=== PATIENT | female | born 1970 | race African-American/Black ===

== ENCOUNTER 2016-09-19 09:33 | Emergency (ER) | payer MEDICAID ==
--- NOTE | 2016-09-19 11:12 | ER Document Report ---
ED General - General Chief Complaint: Cough Stated Complaint: COUGH Notes: Patient has had a sore throat and a cough for the past week. Painful throat to swallow, but no pocket of the airway or oral passage. She is here with her daughter who has had similar symptoms, but for only one day. This patient's stomach hurts when she coughs. She's not had any nausea or vomiting or diarrhea , however. No UTI symptoms. Not aware of any fever. TRAVEL OUTSIDE OF THE [place] IN LAST 30 DAYS: No - Related Data Allergies/Adverse Reactions: No Known Allergies Allergy (Verified 09/19/16 09:41) Past Medical History - Social History Smoking Status: Never Smoker Chew tobacco use (# tins/day): No Frequency of alcohol use: None Drug Abuse: None Family History: Reviewed & Not Pertinent Patient has suicidal ideation: No Patient has homicidal ideation: No - Past Medical History Cardiac Medical History: Reports: Hx Hypertension Denies: Hx Coronary Artery Disease, Hx Heart Attack Past Surgical History: Reports: None - Immunizations Hx Diphtheria, Pertussis, Tetanus Vaccination: Yes Review of Systems - Review of Systems Notes: REVIEW OF SYSTEMS: CONSTITUTIONAL : Denies fever. EENT: Denies eye, ear, nose or mouth or throat pain or other symptoms. CARDIOVASCULAR: Denies chest pain. RESPIRATORY: Has a primarily dry cough without chest congestion, or shortness of breath. GASTROINTESTINAL: Denies abdominal pain or nausea, vomiting, or diarrhea. GENITOURINARY: Denies difficulty or painful urinating, urinary frequency, blood in urine. MUSCULOSKELETAL: Denies back or neck pain. Denies joint pain or swelling. SKIN: Denies rash or skin lesions. NEUROLOGICAL: Denies LOC or altered mental status. Denies headache. Denies sensory loss or motor deficits. ALL OTHER SYSTEMS REVIEWED AND NEGATIVE. Physical Exam - Vital signs Vitals: Temp Pulse Resp BP Pulse Ox 97.8 F 84 20 131/103 H 94 09/19/16 09:39 09/19/16 09:39 09/19/16 09:39 09/19/16 09:39 09/19/16 09:39 Interpretation: Normal - Notes Notes: PHYSICAL EXAMINATION: GENERAL: Well-appearing, in no acute distress. Vital signs are normal. Voice sounds normal. HEAD: Atraumatic, normocephalic. ENT: oropharynx with erythema and some very minimal soft tissue swelling, especially in the right tonsillar region. Without exudates. Moist mucous membranes. Patent oral passage and airway. NECK: Normal range of motion, supple. No significant submandibular adenopathy. LUNGS: Breath sounds clear and equal bilaterally. No wheezes heard. HEART: Regular rate and rhythm without murmurs. ABDOMEN: Soft, nontender. No guarding or rebound. BACK: No tenderness throughout entire back. EXTREMITIES: Normal range of motion without pain. No swelling and no pain. Negative Homans bilaterally. NEUROLOGICAL: Normal speech, normal gait. Normal sensory, motor, and reflex exams. Awake, alert, and oriented x3. Cranial nerves normal. SKIN: Warm, dry, no rashes. Course - Vital Signs Vital signs: Temp Pulse Resp BP Pulse Ox 98.2 F 82 20 128/90 H 91 L 09/19/16 11:23 09/19/16 11:23 09/19/16 09:39 09/19/16 11:23 09/19/16 11:23 - Diagnostic Test Radiology results interpreted by me: 09/19/16 12:56 Chest x-ray is normal. Discharge - Discharge Clinical Impression: Sore throat Pharyngitis Qualifiers: Pharyngitis/tonsillitis etiology: unspecified etiology Qualified Code(s): J02.9 - Acute pharyngitis, unspecified Condition: Stable Disposition: HOME, SELF-CARE Additional Instructions: UPPER RESPIRATORY ILLNESS: You have a viral infection of the respiratory passages -- a "cold." This common infection causes nasal congestion, drainage, and often sore throat and cough. It is highly contagious. The disease usually lasts about 10 to 14 days. There is no "cure" for the viral infection -- it must run its course. If there is a complication, such as bacterial infection in the nose, sinuses, middle ear, or bronchial tubes, antibiotics may be required. The antibiotics won't affect the virus. Drink plenty of fluids. A humidifier may help. An expectorant medication or decongestant may make you more comfortable. Use acetaminophen or ibuprofen for fever or aches. See the doctor if fever persists over two days, if there is any significant worsening of your symptoms, or if you simply fail to improve as expected. SORE THROAT: Sore throats may be caused by viruses, bacteria, or fungi. Most are due to a virus, and must get better on their own. Bacterial sore throats, particularly those due to "strep," need treatment with antibiotics. If an antibiotic is prescribed, be sure to take the medication for a full 10 days. Failure to take the antibiotic can result in complications such as rheumatic fever. Sometimes, an injection of antibiotics is given instead of pills or liquid. This single "shot" is equal in effectiveness to the oral medication. To relieve symptoms, take acetaminophen for pain. Sip clear liquids frequently, or eat popsicles or ice chips. Anesthetic sprays or lozenges may help. Make sure the air in the room is not too dry. Avoid using decongestants or antihistamines. Call the doctor if there is no improvement in two days, or if you have difficulty breathing, increasing throat pain, high fever, rash, or frequent vomiting. STREP THROAT: Your sore throat may be due to the streptococcus germ (strep throat). Strep throat usually makes you feel quite ill with fever and aches, headache, swollen sore throat, and tender bumps under the angles of the jaw. Strep throat requires antibiotic treatment. Although the sore throat may go away by itself, complications such as rheumatic fever, kidney disease, or throat abscess can occur. We usually prescribe antibiotics by mouth. Be sure to take the medicine until it's gone. If you stop early, the strep may come back. If you are vomiting, are severely ill, or can't remember to take pills, we can give you an antibiotic shot. Take acetaminophen or ibuprofen for pain and fever. Sip frequent clear liquids, or use popsicles or ice chips. Anesthetic sprays or lozenges may help. Make sure the air in the room is not too dry. Avoid using decongestants or antihistamines. Call the doctor if there is no improvement in three days, or if you have difficulty breathing, increasing throat pain, high fever, rash, or frequent vomiting. PENICILLIN V K: You have been given a prescription for Penicillin VK. Your physician has determined that this is the best antibiotic for your condition. Pen VK can be taken with meals, however more of the antibiotic gets into the bloodstream if it's taken on an empty stomach. Penicillin usually has no side effects. However, allergy to penicillins is common. If you have had an allergic reaction to any drug of the penicillin family, you should never take any other penicillin. Notify your doctor at once if you develop hives, itching, swelling, faintness, or shortness of breath. Fluconazole, if you develop yeast infection Fluconazole (Diflucan) is an antifungal drug. It is useful for serious fungal infections, but is also excellent for oral or vaginal yeast infections. Diflucan interacts with some medicines. This is a concern if you are taking anticoagulants (such as Coumadin), phenytoin (Dilantin), cyclosporin, or oral hypoglycemics (such as tolbutamide, Orinase, glipizide, Glucotrol, glyburide, DiaBeta, Glynase, and Micronase). Be sure the doctor knows if you are taking one of these medicines. We don't know how Diflucan affects . If you are planning to become , discuss this with your doctor. Diflucan has few side effects. Minor side effects may include nausea, headache, or diarrhea. Call the doctor if you develop a skin rash, shortness of breath, or other new symptoms. USE OF ACETAMINOPHEN (Tylenol): Acetaminophen may be taken for pain relief or fever control. It's much safer than aspirin, offering a wider range of "safe" dosages. It is safe during . Some brand names are Tylenol, Panadol, Datril, Anacin 3, Tempra, and Liquiprin. Acetaminophen can be repeated every four hours. The following are maximum recommended dosages: WEIGHT Dose Drops Elixir Chewable( 80mg) (LBS.) drprs=droppers tsp=teaspoon >89 pounds or adults 650 mg to 900 mg Acetaminophen can be repeated every four hours. Maximum dose not to exceed 4000 mg a day. These maximum recommended dosages are slightly higher than the dosages written on the product container, but these dosages are very safe and below the toxic dosage for acetaminophen. FOLLOW-UP CARE: If you have been referred to a physician for follow-up care, call the physician s office for an appointment as you were instructed or within the next two days. If you experience worsening or a significant change in your symptoms, notify the physician immediately or return to the Emergency Department at any time for re-evaluation. Prescriptions: Fluconazole [Diflucan] 150 mg PO ONCE PRN #1 tablet PRN Reason: Penicillin V Potassium [Penicillin Vk 500 mg Tablet] 500 mg PO TID #20 tablet Forms: Return to Work Referrals: EMMANUEL PRASAD MD [Primary Care Provider] - Follow up as needed
[2016-09-19 11:25] VITALS: BP 128/90
== END 2016-09-19 11:26 | disposition home or self-care (01) ==
LOC: ER 09:33
DX: J02.9 Acute pharyngitis, unspecified (principal); I10 Essential (primary) hypertension
CPT/HCPCS: 71020; 99283

== ENCOUNTER 2018-12-24 05:43 | Day surgery (SDC) | payer MEDICAID ==
[~2018-12-24 05:43] MED LIST: IBUPROFEN 800 MG in NORMAL SALINE 250 ML IV PRN; PREGABALIN 50 MG CAPSULE ONE; PREGABALIN 50 MG CAPSULE PO PRN
[2018-12-24] MEDS ORDERED: BACITRACIN ZINC OINTMENT 15 GM ONE (07:04)
[2018-12-24] MEDS ORDERED: LIDOCAINE 2% JELLY 30 ML TUBE ONE (07:05)
[2018-12-24] MEDS ORDERED: BUPIVACAINE INJ/PF LIPOSOME/PF 266 MG/20 ML SDV ONE (07:05)
[2018-12-24] MEDS ORDERED: FAMOTIDINE INJ/PF 20 MG/2 ML SDV IV ONE (07:15)
[2018-12-24] MEDS ORDERED: IBUPROFEN 800 MG TABLET PO SCH (08:30)
--- NOTE | 2018-12-24 08:33 | Operative Report ---
Nonrecallable Operative Report DATE OF SURGERY: 12/24/18 PREOPERATIVE DIAGNOSIS: Bleeding internal hemorrhoids POSTOPERATIVE DIAGNOSIS: Bleeding internal hemorrhoids OPERATION: Rubber band ligation of internal hemorrhoids x4 SURGEON: STAR KILLIAN 1ST [employer]FOLIO MANAGER: EVELYN STERLING ANESTHESIA: LMAC TISSUE REMOVED OR ALTERED: None COMPLICATIONS: None apparent ESTIMATED BLOOD LOSS: Minimal PROCEDURE: Procedure in detail: After informed consent was obtained, the patient was brought to the operating room and laid in the left lateral decubitus position. The Hill-Arnold retractor was inserted in the rectum. Rubber bands were used to ligate hemorrhoids in 4 quadrants circumferentially around the distal rectum. Once the rubber bands were applied, the procedure was concluded. All sponge, instrument, needle counts were correct x2. Condition: Stable.
--- NOTE | 2018-12-24 08:33 | Discharge Summary ---
Discharge Summary (SDC) - Discharge Final Diagnosis: Bleeding internal hemorrhoids Date of Surgery: 12/24/18 Discharge Date: 12/24/18 Condition: Stable Treatment or Instructions: Discharge home. Diet as tolerated. Activity nonstrenuous. Follow-up with me in [facility] in 3 weeks. 5% lidocaine ointment to rectum 3 times daily. Ibuprofen 800 mg p.o. 3 times daily with meals. Soak buttocks in warm soapy water 3 times daily. Fiber supplements twice daily. Stool softeners as needed. Referrals: XAVI GRACIA MD [Primary Care Provider] - Discharge Diet: As Tolerated Respiratory Treatments at Home: Deep Breathing/Coughing, Incentive Spirometer Discharge Activity: Activity As Tolerated, Balance Activity w/Rest Home Care Assistance: None Needed Report the Following to Your Physician Immediately: Shortness of Breath, Nausea, Vomiting, Increase in Pain, Fever over 101 Degrees, Unusual Bleeding, Redness
[2018-12-24] MEDS ORDERED: LIDOCAINE 5% OINTMENT 35.44 GM TP SCH (10:00)
[2018-12-24 12:15] VITALS: BP 123/79
[2018-12-24] MEDS ORDERED: GLYCOPYRROLATE 1 MG/5 ML SYRINGE ONE (13:32)
== END 2018-12-24 10:10 | disposition home or self-care (01) ==
LOC: OROUT 05:43
PROVIDERS: ATTEND Surgery
DX: K64.8 Other hemorrhoids (principal); I10 Essential (primary) hypertension; Z79.899 Other long term (current) drug therapy; E66.9 Obesity, unspecified; K62.5 Hemorrhage of anus and rectum; Z01.818 Encounter for other preprocedural examination; Z68.41 Body mass index [BMI] 40.0-44.9, adult
CPT/HCPCS: 36415; 84132; 84703; 46221; J3490 ×3; J7050; S0028; J1741; 902; C9290

== ENCOUNTER 2020-04-03 23:06 | Emergency (ER) | payer MEDICAID ==
[2020-04-04 01:25] LABS: ABSOLUTE LYMPHOCYTES (AUTO) 1.3 10^3/uL (0.5-4.7); ABSOLUTE NEUT (AUTO) 3.4 10^3/uL (1.7-8.2); EOSINOPHILS % (AUTO) 0.1 % (0-6); RED CELL DISTRIBUTION WIDTH 13.1 % (11.5-14.0); TOTAL CELLS COUNTED % (AUTO) 100 %
[2020-04-04 01:28] LABS: APPEARANCE,URINE CLEAR; BILIRUBIN,URINE NEGATIVE (NEGATIVE); COLOR,URINE AMBER; GLUCOSE, URINE NEGATIVE (NEGATIVE); KETONES,URINE NEGATIVE (NEGATIVE); LEUKOCYTE ESTERASE,URINE NEGATIVE (NEGATIVE); NITRITE,URINE NEGATIVE (NEGATIVE); PROTEIN,URINE 30 mg/dL (NEGATIVE); URINE SPECIFIC GRAVITY 1.025
[2020-04-04 01:31] LABS: ABSOLUTE MONOCYTES (AUTO) 0.4 10^3/uL (0.1-1.4); BASOPHILS % (AUTO) 0.3 % (0-2); HEMATOCRIT 41.4 % (36.0-47.0); LYMPHOCYTES % (AUTO) 25.1 % (13-45); MEAN CORPUSCULAR HEMOGLOBIN 28.5 pg (27.0-33.4); MEAN CORPUSCULAR HGB CONC 33.9 g/dL (32.0-36.0); MEAN CORPUSCULAR VOLUME 84 fl (80-97); MONOCYTES % (AUTO) 8.7 % (3-13); PLATELET COUNT 135 10^3/uL (150-450); RED BLOOD COUNT 4.92 10^6/uL (3.72-5.28); SEGMENTED NEUTROPHILS % (AUTO) 65.8 % (42-78); WHITE BLOOD COUNT 5.2 10^3/uL (4.0-10.5)
[2020-04-04 01:36] LABS: ALBUMIN 3.8 g/dL (3.5-5.0); ALKALINE PHOSPHATASE 154 U/L (38-126); ANION GAP 8 (5-19); ASPARTATE AMINO TRANSFERASE 150 U/L (14-36); BILIRUBIN,DIRECT 0.3 mg/dL (0.0-0.4); BILIRUBIN,TOTAL 0.9 mg/dL (0.2-1.3); BLOOD UREA NITROGEN 11 mg/dL (7-20); CALCIUM 9.1 mg/dL (8.4-10.2); CARBON DIOXIDE 32 mmol/L (22-30); CHLORIDE 99 mmol/L (98-107); CREATINE KINASE 54 U/L (30-135); GLUCOSE 107 mg/dL (75-110); POTASSIUM 3.2 mmol/L (3.6-5.0); TOTAL PROTEIN 6.8 g/dL (6.3-8.2)
[2020-04-04 01:49] LABS: NT PRO BNP 14 pg/mL (<125)
[2020-04-04] MEDS ORDERED: ONDANSETRON 4 MG TAB.RAPDIS PO ONE (01:57)
[2020-04-04] MEDS ORDERED: HYDROCODONE/ACETAMINOPHEN 5-325 MG TABLET PO ONE (01:57)
--- NOTE | 2020-04-04 01:59 | ER Document Report ---
ED General - General Chief Complaint: Flu Symptoms Stated Complaint: SHORTNESS OF BREATH Time Seen by Provider: 04/04/20 01:44 Primary Care Provider: XAVI GRACIA MD [Primary Care Provider] - Follow up as needed Notes: Patient is a 49-year-old female that comes emergency department for chief complaint of 3 to 4 days of sick symptoms which started with a scratchy throat, she developed congestion, she states then she lost her sense of taste, she also developed a nonproductive cough for the past couple of days. She reports some reduced bowel movements and some generalized lower abdominal discomfort as well. She denies nausea, vomiting, fever, chest pain, headache. She denies any obvious sick contacts. She has not been tested for COVID-19. She denies smoking. She states that she has a history of cholecystectomy and a ductal stent, she states her liver function tests are always slightly elevated. She is also treated for hypertension, denies medical history otherwise. TRAVEL OUTSIDE OF THE [place] IN LAST 30 DAYS: No - Related Data Allergies/Adverse Reactions: No Known Allergies Allergy (Verified 04/04/20 01:44) Home Medications: triam/hctz, amilodipine Past Medical History - General Information source: Patient - Social History Smoking Status: Never Smoker Smoking Education Provided: Yes Drug Abuse: None Lives with: Family Family History: Reviewed & Not Pertinent - Past Medical History Cardiac Medical History: Reports: Hx Hypertension - PO MEDS Denies: Hx Coronary Artery Disease, Hx Heart Attack Pulmonary Medical History: Denies: Hx Asthma, Hx Bronchitis, Hx COPD, Hx Pneumonia Neurological Medical History: Denies: Hx Cerebrovascular Accident, Hx Seizures Renal/ Medical History: Denies: Hx Peritoneal Dialysis Musculoskeletal Medical History: Denies Hx Arthritis Past Surgical History: Reports: Hx Cholecystectomy - Immunizations Hx Diphtheria, Pertussis, Tetanus Vaccination: Yes Review of Systems - Review of Systems Constitutional: See HPI EENT: See HPI Cardiovascular: No symptoms reported Respiratory: See HPI Gastrointestinal: See HPI Genitourinary: No symptoms reported Female Genitourinary: No symptoms reported Musculoskeletal: No symptoms reported Skin: No symptoms reported Hematologic/Lymphatic: No symptoms reported Neurological/Psychological: No symptoms reported Physical Exam - Vital signs Vitals: Temp Pulse Resp BP Pulse Ox 99.1 F 98 16 124/79 98 04/04/20 00:17 04/04/20 00:17 04/04/20 00:17 04/04/20 00:04/04/20 00:17 - Notes Notes: GENERAL: Slightly ill-appearing but still interactive, alert, and does not appear to be in distress HEAD: Normocephalic, atraumatic. EYES: Pupils equal, round, and reactive to light. Extraocular movements intact. ENT: Oral mucosa moist, tongue midline. Oropharynx unremarkable. Airway patent. Mild nasal congestion, sinuses non-tender, ear canals unremarkable, TM's intact. NECK: Full range of motion. Supple. Trachea midline. No lymphadenopathy. No nuchal rigidity. LUNGS: Clear to auscultation bilaterally, no wheezes, rales, or rhonchi. No respiratory distress. Non-tender chest wall. Occasional mild cough. HEART: Regular rate and rhythm. No murmur ABDOMEN: Soft, non-tender. Non-distended. No guarding or rigidity EXTREMITIES: Moves all 4 extremities spontaneously. No edema, normal radial and dorsalis pedis pulses bilaterally. No cyanosis. BACK: no cervical, thoracic, lumbar midline tenderness. No saddle anesthesia, normal distal neurovascular exam. Moves all extremities in full range of motion. NEUROLOGICAL: Alert and oriented x3. Normal speech. Cranial nerves II through XII grossly intact. Strength 5/5 in all extremities. PSYCH: Normal affect, normal mood. SKIN: Warm, dry, normal turgor. No rashes or lesions noted. Course - Re-evaluation Re-evalutation: Patient generally ill-appearing on exam but she is nontoxic, alert, conversational. No respiratory distress. Lungs clear. Soft abdomen. Unremarkable ENT exam. CBC shows mild thrombocytopenia, unremarkable otherwise. Chemistry nonspecific with mildly low potassium, elevated LFTs and alk phos. Patient has no right upper quadrant tenderness or flank pain on my exam, she specifically states that her LFTs are always slightly elevated like this. Very low suspicion of obstruction. Chest x-ray does show patchy bilateral pneumonia, this is suggestive of COVID-19 pneumonia. Blood cultures pending. I reevaluate patient . Patient has no shortness of breath, she does have some coughing and generally feels ill, however she is quite well-appearing. Vital signs are unremarkable. Patient treated with dexamethasone, antibiotics, nausea medication on request, and she will be discharged with a work note, quarantine precautions, COVID-19 testing, and strict return precautions. Discussed with Dr. Sheppard. Patient states appreciation and agreement, stable and well-appearing at time of discharge. - Vital Signs Vital signs: Temp Pulse Resp BP Pulse Ox 98.7 F 86 16 102/68 95 04/04/20 05:09 04/04/20 05:09 04/04/20 05:09 04/04/20 05:09 04/04/20 05:09 - Laboratory Result Diagrams: 04/04/20 01:03 04/04/20 01:03 Laboratory results interpreted by me: 04/04/20 04/04/20 04/04/20 00:57 01:03 01:03 Plt Count 135 L Potassium 3.2 L Carbon Dioxide 32 H AST 150 H ALT 144 H Alkaline Phosphatase 154 H Urine Protein 30 H Urine Blood SMALL H Urine Urobilinogen 4.0 H - EKG Interpretation by Me Additional EKG results interpreted by me: EKG shows sinus rhythm at a rate of 907, QTc 442, normal axis, no T wave inversions or ST segment changes in consecutive leads Discharge - Discharge Clinical Impression: Cough, Loss of taste, Nausea, Person under investigation for COVID-19 Pneumonia Qualifiers: Pneumonia type: due to unspecified organism Laterality: bilateral Lung location: unspecified part of lung Qualified Code(s): J18.9 - Pneumonia, unspecified organism Abdominal pain Qualifiers: Abdominal location: generalized Qualified Code(s): R10.84 - Generalized abdominal pain Condition: Stable Disposition: HOME, SELF-CARE Additional Instructions: Your evaluation is consistent with a viral illness and pneumonia on both sides. I strongly suspect that you have COVID-19 pneumonia. You have been tested for this, please quarantine, you will be contacted with your results. Rest, drink plenty of fluids, take Tylenol and ibuprofen for fever/chills/body aches, take the azithromycin antibiotic as prescribed, take the nausea medication if needed. Return if you worsen including chest pain, difficulty breathing, uncontrolled vomiting, or any other concerning or worsening symptoms. As a person under investigation for COVID-19, the [place] Department of Health and Human Services (division on public health) advises you to adhere to the following guidance until your test results are reported to you. If your test result is positive, you will receive additional information from your provider and your local health department at that time. Remain at home until you are cleared by the health provider or public health authorities. Keep a log of visitors to your home, notify any visitors to your home of your isolation status. If you plan to move to a new address or leave the county, notify the local health department in your County. Call your Doctor or seek care if you have an urgent medical need. Before seeking medical care, call him to get instructions from the provider before arriving at the medical office, clinic, or hospital. Notify them that you are being tested for the virus (COVID-19) so that arrangements can be made, as necessary, to prevent transmission to others in the healthcare setting. Next, notify the local health department in your county. If a medical emergency arises and you need to call 911, inform the first responders that you are being tested for the virus that causes COVID-19. Next, notify the local health department in your county. Prescriptions: Promethazine HCl [Phenergan 25 mg Tablet] 25 mg PO Q6H PRN #20 tablet PRN Reason: Azithromycin [Zithromax 250 mg Tablet] 250 mg PO ASDIR PRN #4 tablet PRN Reason: Forms: Return to Work Referrals: XAVI GRACIA MD [Primary Care Provider] - Follow up as needed
[2020-04-04 02:02] LABS: CREATINE KINASE MB < 0.22 ng/mL (<4.55); TROPONIN I < 0.012 ng/mL
--- NOTE | 2020-04-04 03:25 | RADIOLOGY REPORT (SQ) ---
CLINICAL INDICATION: abd/swelling and pain; cough. TECHNIQUE: 3 image(s) of the abdomen. Single image(s) of the chest. COMPARISON: None. CORRELATION: None. FINDINGS: A nonspecific gas pattern is identified. No evidence of high grade obstruction. No evidence of free air. Remote postsurgical change. Scoliosis. Osteoarthritis. The cardiomediastinal silhouette is normal. The lungs are of low volume. Patchy airspace disease at both lung bases left greater than right. Small effusions. No pneumothorax. The visualized bones are unremarkable. IMPRESSION: No acute intra-abdominal process is identified. Patchy airspace disease at the bases left greater than right. Pneumonia could have this appearance.
[2020-04-04] MEDS ORDERED: CEFTRIAXONE 1 GM/D5W RTU 1 GM/50 ML RTUPB IV ONE (03:37)
[2020-04-04] MEDS ORDERED: NORMAL SALINE 1000 ML 1,000 ML IV ONE (03:37)
[2020-04-04] MEDS ORDERED: DEXAMETHASONE SOD PHOS INJ 10 MG/1 ML VIAL IV ONE (03:37)
[2020-04-04] MEDS ORDERED: AZITHROMYCIN 250 MG TABLET PO ONE (03:57)
[2020-04-04 05:10] VITALS: BP 102/68
--- NOTE | 2020-04-04 08:52 | EKG REPORT ---
SEVERITY:- ABNORMAL ECG - SINUS RHYTHM ABNRM R PROG, CONSIDER ASMI OR LEAD PLACEMENT : Confirmed by: Luis F Castellanos MD 04-Apr-2020 08:52:22
== END 2020-04-04 05:24 | disposition home or self-care (01) ==
LOC: ER 23:06
DX: U07.1 COVID-19 (principal); J18.9 Pneumonia, unspecified organism; R43.9 Unspecified disturbances of smell and taste; R05 Cough; R11.0 Nausea; R10.84 Generalized abdominal pain; R06.02 Shortness of breath; R09.81 Nasal congestion; R10.30 Lower abdominal pain, unspecified; Z79.899 Other long term (current) drug therapy; I10 Essential (primary) hypertension
CPT/HCPCS: 93005; 99285; 96375; 96365; 36415; 87040; 82553; 82550; 85025; 87635; 81025; 80053; 81001; 84484; 83880; 74022; 93010; Q0144; S0119; J7030; J0696; J1100; C9803

== ENCOUNTER 2020-04-04 17:15 | Emergency (ER) | payer MEDICAID ==
[2020-04-04] MEDS ORDERED: AZITHROMYCIN 250 MG TABLET PO ONE (18:19)
--- NOTE | 2020-04-04 18:25 | ER Document Report ---
ED Medical Screen (RME) - General Chief Complaint: Shortness Of Breath Stated Complaint: SHORT OF BREATH,COUGH Time Seen by Provider: 04/04/20 18:18 Primary Care Provider: XAVI GRACIA MD [Primary Care Provider] - Follow up as needed Mode of Arrival: Ambulatory Information source: Patient Notes: 49-year-old female presented to ED for complaint of shortness of breath and cough. She states she was seen yesterday and diagnosed with double pneumonia. She still states that Dr. Gracia called her today and told her to come back to the hospital. She states could she please get the medicine that was prescribed yesterday when I asked her what was prescribed yesterday she said I can look at the computer myself and find out. Patient is alert oriented respi rations regular nonlabored speaking in full sentences. She does have a cough occasionally while I am talking to her. I did order blood chest x-ray and I did look it up and she was prescribed azithromycin yesterday so I did order a dose today. I have greeted and performed a rapid initial assessment of this patient. A comprehensive ED assessment and evaluation of the patient, analysis of test r esults and completion of medical decision making process will be conducted by an additional ED providers. TRAVEL OUTSIDE OF THE [place] IN LAST 30 DAYS: No - Related Data Allergies/Adverse Reactions: No Known Allergies Allergy (Verified 04/04/20 01:44) Past Medical History - Past Medical History Cardiac Medical History: Reports: Hx Hypertension - PO MEDS Denies: Hx Coronary Artery Disease, Hx Heart Attack Pulmonary Medical History: Denies: Hx Asthma, Hx Bronchitis, Hx COPD, Hx Pneumonia Neurological Medical History: Denies: Hx Cerebrovascular Accident, Hx Seizures Renal/ Medical History: Denies: Hx Peritoneal Dialysis Musculoskeltal Medical History: Denies Hx Arthritis Past Surgical History: Reports: Hx Cholecystectomy - Immunizations Hx Diphtheria, Pertussis, Tetanus Vaccination: Yes Physical Exam - Vital signs Vitals: Temp Pulse Resp BP Pulse Ox 99.1 F 100 20 130/73 H 98 04/04/20 17:23 04/04/20 17:23 04/04/20 17:23 04/04/20 17:23 04/04/20 17:23 Course - Vital Signs Vital signs: Temp Pulse Resp BP Pulse Ox 99.1 F 100 20 130/73 H 98 04/04/20 17:23 04/04/20 17:23 04/04/20 17:23 04/04/20 17:23 04/04/20 17:23 Doctor's Discharge - Discharge Referrals: XAVI GRACIA MD [Primary Care Provider] - Follow up as needed
[2020-04-04 18:52] LABS: ABSOLUTE LYMPHOCYTES (AUTO) 0.6 10^3/uL (0.5-4.7); ABSOLUTE MONOCYTES (AUTO) 0.3 10^3/uL (0.1-1.4); ABSOLUTE NEUT (AUTO) 2.4 10^3/uL (1.7-8.2); BASOPHILS % (AUTO) 0.2 % (0-2); HEMATOCRIT 39.5 % (36.0-47.0); HEMOGLOBIN 13.4 g/dL (12.0-15.5); LYMPHOCYTES % (AUTO) 18.6 % (13-45); MEAN CORPUSCULAR HEMOGLOBIN 28.2 pg (27.0-33.4); MEAN CORPUSCULAR VOLUME 83 fl (80-97); MONOCYTES % (AUTO) 8.8 % (3-13); PLATELET COUNT 136 10^3/uL (150-450); RED BLOOD COUNT 4.77 10^6/uL (3.72-5.28); SEGMENTED NEUTROPHILS % (AUTO) 72.4 % (42-78); TOTAL CELLS COUNTED % (AUTO) 100 %; WHITE BLOOD COUNT 3.3 10^3/uL (4.0-10.5)
[2020-04-04 19:08] LABS: ALBUMIN 3.6 g/dL (3.5-5.0); ALKALINE PHOSPHATASE 157 U/L (38-126); ANION GAP 5 (5-19); ASPARTATE AMINO TRANSFERASE 111 U/L (14-36); BILIRUBIN,DIRECT 0.4 mg/dL (0.0-0.4); BILIRUBIN,TOTAL 0.7 mg/dL (0.2-1.3); BLOOD UREA NITROGEN 11 mg/dL (7-20); CALCIUM 8.7 mg/dL (8.4-10.2); CARBON DIOXIDE 30 mmol/L (22-30); CHLORIDE 103 mmol/L (98-107); GLUCOSE 122 mg/dL (75-110); POTASSIUM 3.2 mmol/L (3.6-5.0); TOTAL PROTEIN 6.9 g/dL (6.3-8.2)
--- NOTE | 2020-04-04 19:12 | RADIOLOGY REPORT (SQ) ---
EXAM DESCRIPTION: CHEST SINGLE VIEW IMAGES COMPLETED DATE/TIME: 04/04/2020 7:02 pm REASON FOR STUDY: #1 SYNCOPE COMPARISON: 09/19/2016 EXAM PARAMETERS: NUMBER OF VIEWS: One view. TECHNIQUE: Single frontal radiographic view of the chest acquired. RADIATION DOSE: NA LIMITATIONS: None. FINDINGS: LUNGS AND PLEURA: No opacities, masses or pneumothorax. No pleural effusion. MEDIASTINUM AND HILAR STRUCTURES: No masses. Contour normal. HEART AND VASCULAR STRUCTURES: Heart normal in size. Normal vasculature. BONES: No acute findings. HARDWARE: None in the chest. OTHER: No other significant finding. IMPRESSION: NO ACUTE RADIOGRAPHIC FINDING IN THE CHEST. TECHNICAL DOCUMENTATION: JOB ID: [id number] 2010 [employer]- All Rights Reserved Reading location - IP/workstation name: [email or web address]
[2020-04-04] MEDS ORDERED: POTASSIUM CHLORIDE 10 MEQ TABLET.ER PO ONE (19:56)
[2020-04-04] MEDS ORDERED: NORMAL SALINE 1000 ML 1,000 ML IV ONE (19:56)
--- NOTE | 2020-04-04 21:09 | ER Document Report ---
ED General - General Chief Complaint: Shortness Of Breath Stated Complaint: SHORT OF BREATH,COUGH Time Seen by Provider: 04/04/20 18:18 Primary Care Provider: XAVI GRACIA MD [Primary Care Provider] - Follow up as needed Mode of Arrival: Ambulatory Notes: 49-year-old female history of hypertension presents with COVID-19 symptoms. Patient was seen in ED yesterday and had chest x-ray consistent with bilateral lobe pneumonia but had no hypoxia no respiratory distress and was discharged on azithromycin with return precautions and PCP follow-up. Today patient called her PCP and told the part time receptionist that she was seen in the ED and diagnosed with "double pneumonia "and part time receptionist told patient that she should come back to the ED. In the ED patient says that she is still having dry cough, feeling generally weak and mildly short of breath, but otherwise does not feel any worse. Patient has been tolerating liquids by mouth, has been urinating normally, denies any chest pain, shortness of breath not worsened. Patient denies any cardiac history, dizziness, syncope, abdominal pain, vomiting, diarrhea, PE risk factors TRAVEL OUTSIDE OF THE [place] IN LAST 30 DAYS: No - Related Data Allergies/Adverse Reactions: No Known Allergies Allergy (Verified 04/04/20 01:44) Home Medications: Amlodipine 10mg daily. Triant/Hctz 37.5-25 1 tab daily QAM Past Medical History - General Information source: Patient, [facility] [place] Records - Social History Smoking Status: Never Smoker Chew tobacco use (# tins/day): No Frequency of alcohol use: Occasional Drug Abuse: None Family History: Reviewed & Not Pertinent Patient has homicidal ideation: No - Past Medical History Cardiac Medical History: Reports: Hx Hypertension - PO MEDS Denies: Hx Coronary Artery Disease, Hx Heart Attack Pulmonary Medical History: Denies: Hx Asthma, Hx Bronchitis, Hx COPD, Hx Pneumonia Neurological Medical History: Denies: Hx Cerebrovascular Accident, Hx Seizures Renal/ Medical History: Denies: Hx Peritoneal Dialysis Musculoskeletal Medical History: Denies Hx Arthritis Past Surgical History: Reports: Hx Cholecystectomy - Immunizations Hx Diphtheria, Pertussis, Tetanus Vaccination: Yes Review of Systems - Review of Systems Notes: REVIEW OF SYSTEMS: CONSTITUTIONAL : Denies fever, chills, or sweats. EENT: + recent cold symptoms, denies throat pain CARDIOVASCULAR: Denies chest pain, [place] RESPIRATORY: +cough, +shortness of breath. GASTROINTESTINAL: Denies abdominal pain, nausea/vomiting. GENITOURINARY: Denies difficulty urinating, painful urination. FEMALE GENITOURINARY: Denies abnormal vaginal bleeding, vaginal discharge. MUSCULOSKELETAL: Denies neck pain, back pain. SKIN: Denies rash or skin lesions. HEMATOLOGIC : Denies easy bruising or bleeding. LYMPHATIC: Denies swollen, enlarged glands. NEUROLOGICAL: Denies headache, denies change in gait. PSYCHIATRIC: Denies anxiety or stress or depression. Physical Exam - Vital signs Vitals: Temp 99.1 F 04/04/20 17:15 - Notes Notes: PHYSICAL EXAMINATION: GENERAL: Well-appearing, well-nourished and in no acute distress. HEAD: Atraumatic, normocephalic. EYES: Pupils equal round and appropriate constriction, sclera anicteric, conjunctiva are normal. ENT: nares patent, mildly dry mucous membranes. NECK: Normal range of motion, supple without lymphadenopathy LUNGS: Breath sounds clear to auscultation bilaterally and equal. No wheezes rales or rhonchi. HEART: Mild tachycardia with regular rhythm, no murmurs rubs or gallops ABDOMEN: Soft, nontender, no guarding, no masses, no CVAT EXTREMITIES: Normal range of motion, no pitting or edema. No cyanosis. NEUROLOGICAL: Awake, alert, conversing appropriately, moves all extremities spontaneously. PSYCH: Normal mood, normal affect. SKIN: Warm, Dry, normal turgor, no rashes or lesions noted. Course - Re-evaluation Re-evalutation: 04/04/20 21:09 Patient referred back to ED but did not see PCP in the interim, has no worsening symptoms, symptoms highly consistent with COVID-19. Patient with no respiratory distress, normal respiratory rate and effort. Patient mildly tachycardic, may be mild dehydration but given presence of COVID will rule out PE with d-dimer. D-dimer was mildly positive so will obtain CTA before discharging patient. I spoke to Dr. Gracia to make sure that there were not any other concerns that he had regarding patient and there were none. Will obtain CTA and then likely discharge patient after fluids and replacement of potassium for mild hypo kalemia. 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 Presentation not consistent with ACS and no indication to rule out currently. 04/04/20 23:12 Was mildly positive so obtain CTA to rule out PE which was negative for PE but did show small peripheral ground glass opacities consistent with COVID-19 pneum onia.. Patient feels improved after fluids, ready for discharge with PCP follow-up. I gave patient extensive return to ED precautions which she demonstrated understanding of. The patient was evaluated during the global COVID-19 pandemic and that diagnosis was suspected/considered upon their initial presentation. Their evaluation, treatment and testing was consistent with current guidelines for patients who present with complaints or symptoms that may be related to COVID-19. - Vital Signs Vital signs: Temp Pulse Resp BP Pulse Ox 99.1 F 100 20 130/73 H 98 04/04/20 17:23 04/04/20 17:23 04/04/20 17:23 04/04/20 17:23 04/04/20 17:23 - Laboratory Result Diagrams: 04/04/20 18:30 04/04/20 18:30 Laboratory results interpreted by me: 04/04/20 04/04/20 04/04/20 18:30 18:30 18:30 WBC 3.3 L Plt Count 136 L D-Dimer 0.59 H Potassium 3.2 L Glucose 122 H AST 111 H ALT 131 H Alkaline Phosphatase 157 H Discharge - Discharge Clinical Impression: Viral pneumonia, Hypokalemia, Dehydration, Thrombocytopenia Leukopenia Qualifiers: Leukopenia type: unspecified Qualified Code(s): D72.819 - Decreased white blood cell count, unspecified Condition: Stable Disposition: HOME, SELF-CARE Additional Instructions: Patient was provided with discharge information including: As a person under investigation for Covid 19, the [place] department of Health and Human Services, division of public health advises you to adhere to the following guidance until your test results are reported to you. If your test result is positive, you will receive additional information from your provider and your local health department at that time. Remain at home until you are cleared by the health provider or public health authorities. Keep a log of visitors to your home, notify any visitors to your home of your isolation status. If you plan to move to a new address or leave the county, notify the local health department in your County. Call your doctor or seek care if you have an urgent medical need. Before seeking medical care, call ahead to get instructions from the provider before arriving at the medical office clinic or hospital. Notify them that you are being tested for the virus that causes Covid 19 so that arrangements can be made, as necessary, to prevent transmission to others in the healthcare setting. Next, notify the local health department in your county. If a medical emergency arises and you need to call 911, inform the first responders that you are being tested for the virus that causes Covid 19. Next, notify the local health department in your county. You have mildly low potassium and were mildly dehydrated during this visit. Also your platelets were mildly decreased and your white blood cells are mildly decreased. Discussed all these findings with your primary care doctor. Increase your intake of fluids by mouth. Try to drink fluids containing electrolytes such as Gatorade or Pedialyte. follow-up with your primary doctor within 3 days. If you have any worsening symptoms, inability to keep down liquids by mouth, dizziness, fainting, chest pain, trouble breathing, confusion, neck pain or stiffness, decreased urination, or any other worsening or alarming symptoms please return to the emergency department immediately. Prescriptions: Acetaminophen with Codeine [Tylenol #3 Tablet] 1 each PO Q6HP PRN #6 tablet PRN Reason: Benzonatate [Tessalon Perles 100 mg Capsule] 100 mg PO Q8HP PRN #15 capsule PRN Reason: Cough Referrals: XAVI GRACIA MD [Primary Care Provider] - Follow up as needed
--- NOTE | 2020-04-04 22:55 | RADIOLOGY REPORT (SQ) ---
EXAM DESCRIPTION: CTA chest with contrast CLINICAL HISTORY: 49 years Female, covid symptoms, sob, tachycardia, positive dimer(0.56) COMPARISON: None. TECHNIQUE: Axial images of the chest were performed utilizing intravenous contrast, with sagittal and coronal MIP images and sagittal and coronal reformatted images. This exam was performed according to our departmental dose-optimization program which includes use of Automated Exposure Control, adjustment of the mA and/or kV according to patient size and/or use of iterative reconstruction technique. FINDINGS: There are multiple relatively small peripheral groundglass opacities in the lungs bilaterally, compatible with pneumonia. No evidence of pleural effusion. No evidence of pulmonary embolus. No evidence of aortic dissection. No evidence of mediastinal or hilar adenopathy. IMPRESSION: Commonly reported imaging features of COVID-19 pneumonia are present. Other processes such as influenza pneumonia and organizing pneumonia, as can be seen with drug toxicity and connective tissue disease, can cause a similar imaging pattern. [PneTyp] Reference: https://pubs.rsna.org/doi/full/10.1148/ryct.[email or web address]
[2020-04-04 23:40] VITALS: BP 133/81
== END 2020-04-04 23:40 | disposition home or self-care (01) ==
LOC: ER 17:15
DX: J12.9 Viral pneumonia, unspecified (principal); D72.819 Decreased white blood cell count, unspecified; D69.6 Thrombocytopenia, unspecified; E87.6 Hypokalemia; E86.0 Dehydration; R06.02 Shortness of breath; I10 Essential (primary) hypertension; Z90.49 Acquired absence of other specified parts of digestive tract
CPT/HCPCS: 99285; 96360; 36415; 87040; 84703; 87070; 85379; 71045; 71275; Q0144; J7030